=== PATIENT | female | born 1940 | race African-American/Black ===

== ENCOUNTER 2019-02-14 13:05 | Inpatient (IN) | payer OTHER ==
[~2019-02-14] VITALS: Ht 167.6 cm; Wt 64.6 kg
[2019-02-14 14:43] LABS: EOSINOPHILS % 2.3 % (0.0-5.0); HEMATOCRIT. 35.1 % (36.0-48.0); HEMOGLOBIN. 11.7 g/dL (12.0-16.0); LYMPHOCYTES % 29.6 % (20.0-50.0); MEAN CORPUSCULAR HEMOGLOBIN 28.6 pg (28.0-32.0); MEAN CORPUSCULAR VOLUME 85.9 fL (81.0-99.0); MEAN PLATELET VOLUME 9.4 fl (7.4-10.4); MONOCYTES % 6.6 % (2.0-8.0); NEUTROPHILS % 60.5 % (40.0-76.0); PLATELET 168 x1000/uL (130-400); RED BLOOD CELL COUNT 4.09 mill/uL (4.2-5.4); RED CELL DISTRIBUTION WIDTH 20.5 % (11.6-14.6)
[2019-02-14 14:50] LABS: CHLORIDE 106 mEq/L (98-107)
[2019-02-14] MEDS ORDERED: ASPIRIN 325MG EC TABLET PO ONE (15:30)
[2019-02-14] MEDS ORDERED: ASPIRIN 81MG TABLET ONE (16:40)
[2019-02-14] MEDS: CLOPIDOGREL 75MG TABLET PO SCH (17:00)
[2019-02-14] MEDS ORDERED: ASPIRIN 325MG EC TABLET PO SCH (17:00)
[2019-02-14] MEDS ORDERED: ENOXAPARIN 60MG/0.6ML SYR SUBCUT ONE (17:15)
[2019-02-14] MEDS ORDERED: NA PHOS,M-B/NA PHOS,DI-BA ENEMA 118ML PR PRN (17:30)
[2019-02-14] MEDS ORDERED: DIPHENHYDRAMINE 50MG/ML VIAL IV PRN (17:30)
[2019-02-14] MEDS ORDERED: ACETAMINOPHEN 650MG SUPP PR PRN (17:30)
[2019-02-14] MEDS ORDERED: ACETAMINOPHEN 325MG TABLET PO PRN (17:30)
[2019-02-14] MEDS ORDERED: LORAZEPAM 0.5MG TABLET PO PRN (17:30)
[2019-02-14] MEDS ORDERED: IPRATROPIUM/ALBUTEROL 0.5-3(2.5)MG/3ML NEB NEB PRN (17:30)
[2019-02-14] MEDS ORDERED: ONDANSETRON HCL 4MG/2ML INJ IV PRN (17:30)
[2019-02-14] MEDS ORDERED: DOCUSATE SODIUM 100MG CAPSULE PO PRN (17:30)
[2019-02-14] MEDS ORDERED: HYDROCODONE/ACETAMINOPHEN 5/325MG TABLET PO PRN (17:30)
[2019-02-14] MEDS ORDERED: CLONIDINE 0.1MG TABLET PO PRN (17:30)
[2019-02-14] MEDS ORDERED: MAGNESIUM/ALUMINUM HYDROXIDE/SIMETHICONE 30ML UDC PO PRN (17:30)
[2019-02-14] MEDS ORDERED: GUAIFENESIN 200MG/10ML SUGAR FREE UDC PO PRN (17:30)
[2019-02-14] MEDS ORDERED: CARVEDILOL 12.5MG TABLET PO NR (17:48)
[2019-02-14 18:06] LABS: CLARITY URINE CLEAR (CLEAR); COLOR URINE YELLOW (YELLOW); KETONES URINE NEGATIVE (NEGATIVE); LEUKOCYTE ESTERASE URINE TRACE (NEGATIVE); NITRITE URINE NEGATIVE (NEGATIVE); OCCULT BLOOD URINE NEGATIVE (NEGATIVE); PROTEIN URINE NEGATIVE (NEGATIVE); SPECIFIC GRAVITY URINE 1.006 (1.005-1.030); UROBILINOGEN URINE 0.2 E.U./dL (0.2-1.0)
[2019-02-14 18:10] LABS: BG BASE EXCESS 0.1 mmol/L (-2.0-2.0); BG CARBOXYHEMOGLOBIN 0.7 % (0.5-1.5); BG DEOXYHEMOGLOBIN 7.4 % (0.0-5.0); BG FRACTION INSPIRED OXYGEN 21; BG HCO3 ACT 24.7 mmol/L (22.0-26.0); BG METHEMOGLOBIN 0.4 % (0.0-1.5); BG OXYGEN SATURATION 92.5 % (92.0-98.5); BG OXYHEMOGLOBIN 91.5 % (94.0-97.0); BG PCO2 39.9 mmHg (35.0-45.0); BG PH 7.409 (7.350-7.450); BG PO2 67.9 mmHg (75.0-100.0); BG SAMPLE SITE RIGHT RADIAL; BG TOTAL HEMOGLOBIN 12.4 g/dL (12.0-18.0); BG VENT MODE ROOM AIR
[2019-02-14 18:21] LABS: *AMPHETAMINES SCREEN URINE NEGATIVE (NEGATIVE); *BARBITURATES SCREEN URINE NEGATIVE (NEGATIVE); *BENZODIAZEPINES SCREEN URINE NEGATIVE (NEGATIVE); *COCAINE SCREEN URINE NEGATIVE (NEGATIVE); CANNABINOID URINE SCREEN NEGATIVE (NEGATIVE)
[2019-02-14 18:22] LABS: METHADONE URINE SCREEN NEGATIVE (NEGATIVE); OPIATES URINE SCREEN NEGATIVE (NEGATIVE); PHENCYCLIDINE URINE SCREEN NEGATIVE (NEGATIVE)
[2019-02-14 19:16] LABS: EOSINOPHILS % 3.4 % (0.0-5.0); HEMATOCRIT. 32.6 % (36.0-48.0); HEMOGLOBIN. 11.1 g/dL (12.0-16.0); LYMPHOCYTES % 39.7 % (20.0-50.0); MEAN CORPUSCULAR VOLUME 85.1 fL (81.0-99.0); MEAN PLATELET VOLUME 9.1 fl (7.4-10.4); MONOCYTES % 5.5 % (2.0-8.0); NEUTROPHILS % 50.4 % (40.0-76.0); PLATELET 157 x1000/uL (130-400); RED BLOOD CELL COUNT 3.83 mill/uL (4.2-5.4); RED CELL DISTRIBUTION WIDTH 20.7 % (11.6-14.6)
[2019-02-14 19:20] LABS: CHLORIDE 108 mEq/L (98-107)
[2019-02-14 19:27] LABS: LDL CHOLESTEROL 100 mg/dL (5-100)
[2019-02-14 19:28] LABS: HDL CHOLESTEROL 91 mg/dL (40-59)
[2019-02-14 19:29] LABS: T4 FREE 1.11 ng/dL (0.76-1.46)
[2019-02-14 19:32] LABS: D-DIMER 0.44 mg/L FEU (<0.50); INR 1.1; PROTHROMBIN TIME 11.4 sec (9.6-11.0)
[2019-02-14 22:00] VITALS: BP 150/60
[2019-02-14] MEDS: AMLODIPINE 5MG TABLET PO SCH (23:00)
[2019-02-14] MEDS: CARVEDILOL 12.5MG TABLET PO SCH (23:00)
[2019-02-14] MEDS: ATORVASTATIN CALCIUM 20MG TABLET PO SCH (23:00)
[2019-02-14] MEDS: NITROGLYCERIN OINT 1GM/INCH UDPKT TD SCH (23:10)
[2019-02-15] VITALS: BP 133/71
[2019-02-15 00:40] LABS: CREATINE KINASE MB FRACTION 1.9 ng/mL (0.5-3.6)
[2019-02-15] MEDS ORDERED: LOSA25TA26 PO (03:22)
[2019-02-15] MEDS ORDERED: AMLO5TAB88 PO ×2 (03:22)
[2019-02-15] MEDS ORDERED: ATOR20TA65 PO (03:22)
[2019-02-15] MEDS ORDERED: CARV25TA47 PO (03:22)
[2019-02-15] MEDS ORDERED: TEMA30CA PO (03:22)
[2019-02-15] MEDS ORDERED: ASPI-1393 PO (03:22)
[2019-02-15] MEDS ORDERED: CLOP75TA33 PO (03:22)
[2019-02-15] MEDS ORDERED: FAMO20TA8 PO (03:22)
[2019-02-15] MEDS ORDERED: GABA-290 PO (03:22)
[2019-02-15] MEDS ORDERED: CALC-1042 PO (03:22)
[2019-02-15] MEDS ORDERED: POTA8TAB8 PO (03:22)
[2019-02-15] MEDS ORDERED: HYDR200T35 PO (03:22)
[2019-02-15] MEDS ORDERED: EZET10TA13 PO (03:22)
[2019-02-15] MEDS ORDERED: PANT40TA4 PO (03:22)
[2019-02-15] MEDS ORDERED: ACYC200C PO (03:22)
[2019-02-15] MEDS ORDERED: FURO20TA4 PO (03:22)
[2019-02-15] MEDS ORDERED: NITR0.4T49 SL (03:22)
[2019-02-15 04:00] VITALS: BP 128/55
[2019-02-15] MEDS: NITROGLYCERIN OINT 1GM/INCH UDPKT TD SCH ×4 (05:06→23:53)
[2019-02-15 06:44] LABS: CHLORIDE 109 mEq/L (98-107)
[2019-02-15 06:47] LABS: BASOPHILS % 1.5 % (0.0-2.0); EOSINOPHILS % 4.7 % (0.0-5.0); HEMATOCRIT. 33.2 % (36.0-48.0); HEMOGLOBIN. 11.3 g/dL (12.0-16.0); LYMPHOCYTES % 47.5 % (20.0-50.0); MEAN CORPUSCULAR HEMOGLOBIN 29.1 pg (28.0-32.0); MEAN CORPUSCULAR VOLUME 85.7 fL (81.0-99.0); MEAN PLATELET VOLUME 9.4 fl (7.4-10.4); NEUTROPHILS % 38.3 % (40.0-76.0); PLATELET 151 x1000/uL (130-400); RED BLOOD CELL COUNT 3.88 mill/uL (4.2-5.4); RED CELL DISTRIBUTION WIDTH 20.5 % (11.6-14.6)
[2019-02-15 06:59] LABS: LDL CHOLESTEROL 94 mg/dL (5-100)
[2019-02-15 07:00] LABS: CREATINE KINASE 77 IU/L (26-192)
[2019-02-15 07:01] LABS: CREATINE KINASE MB FRACTION 1.5 ng/mL (0.5-3.6); T4 FREE 1.09 ng/dL (0.76-1.46)
[2019-02-15 07:03] LABS: HDL CHOLESTEROL 78 mg/dL (40-59)
[2019-02-15 08:00] VITALS: BP 159/68
[2019-02-15] MEDS ORDERED: ENOXAPARIN 40MG/0.4ML SYR SUBCUT SCH (09:00)
[2019-02-15] MEDS ORDERED: ASPIRIN 81MG EC TABLET PO SCH (09:00)
[2019-02-15] MEDS: CARVEDILOL 12.5MG TABLET PO SCH ×2 (09:42→21:07)
[2019-02-15] MEDS: AMLODIPINE 5MG TABLET PO SCH ×2 (09:42→21:07)
[2019-02-15] MEDS: CLOPIDOGREL 75MG TABLET PO SCH (09:42)
[2019-02-15] MEDS: ASPIRIN 81MG EC TABLET PO SCH ×2 (09:43→17:58)
[2019-02-15] MEDS: LOSARTAN POTASSIUM 25 MG TABLET PO SCH (09:43)
[2019-02-15 12:00] VITALS: BP 146/79
[2019-02-15 16:00] VITALS: BP 101/74
[2019-02-15 20:00] VITALS: BP 122/60
[2019-02-15] MEDS: ATORVASTATIN CALCIUM 20MG TABLET PO SCH (21:07)
[2019-02-15] MEDS ORDERED: THROAT LOZENGES-BENZOCAINE/MENTH/CETYLPYRD CL LOZENGES MM PRN (22:30)
[2019-02-16] VITALS (16 sets, daily range): BP systolic 101–160; BP diastolic 52–88
[2019-02-16] MEDS: NITROGLYCERIN OINT 1GM/INCH UDPKT TD SCH ×2 (05:15→19:51)
[2019-02-16] MEDS ORDERED: SODIUM CHLORIDE 0.45% 1,000 ML IV ONE (06:00)
[2019-02-16] MEDS: LOSARTAN POTASSIUM 25 MG TABLET PO SCH (08:50)
[2019-02-16] MEDS: CLOPIDOGREL 75MG TABLET PO SCH (08:50)
[2019-02-16] MEDS: AMLODIPINE 5MG TABLET PO SCH ×2 (08:51→20:56)
[2019-02-16] MEDS: ASPIRIN 81MG EC TABLET PO SCH (08:51)
[2019-02-16] MEDS: CARVEDILOL 12.5MG TABLET PO SCH ×2 (08:51→20:56)
[2019-02-16] MEDS ORDERED: ENOXAPARIN 30MG/0.3ML SYR SUBCUT SCH (09:00)
[2019-02-16 09:58] LABS: BASOPHILS % 1.1 % (0.0-2.0); EOSINOPHILS % 3.7 % (0.0-5.0); HEMATOCRIT. 33.9 % (36.0-48.0); HEMOGLOBIN. 11.5 g/dL (12.0-16.0); LYMPHOCYTES % 33.9 % (20.0-50.0); MEAN CORPUSCULAR HEMOGLOBIN 29.2 pg (28.0-32.0); MEAN PLATELET VOLUME 9.8 fl (7.4-10.4); MONOCYTES % 7.5 % (2.0-8.0); NEUTROPHILS % 53.8 % (40.0-76.0); PLATELET 157 x1000/uL (130-400); RED BLOOD CELL COUNT 3.94 mill/uL (4.2-5.4); RED CELL DISTRIBUTION WIDTH 20.4 % (11.6-14.6)
[2019-02-16] MEDS ORDERED: NICARDIPINE 100MCG/ML 10ML VIAL (CATH LAB) IV ONE (10:00)
[2019-02-16] MEDS ORDERED: NITROGLYCERIN 50MCG/ML 10ML VIAL (CATH LAB) IV ONE (10:00)
[2019-02-16] MEDS ORDERED: MIDAZOLAM HCL 2 MG/2 ML VIAL ONE (13:51)
[2019-02-16] MEDS ORDERED: FENTANYL CITRATE/PF 50MCG/ML 2ML VIAL ONE (13:51)
[2019-02-16] MEDS ORDERED: IOHEXOL-300 100 ML BOTTLE ONE ×2 (13:52→14:33)
[2019-02-16] MEDS ORDERED: IODIXANOL 320MG/ML 100 ML BOTTLE IV ONE (13:52)
[2019-02-16] MEDS ORDERED: LIDOCAINE HCL 1% 20ML VIAL (Pyxis) INJ ONE (13:52)
[2019-02-16] MEDS ORDERED: ASPIRIN/SOD BICARB/CITRIC ACID 324MG TAB EFF ONE (13:55)
[2019-02-16] MEDS ORDERED: CLOPIDOGREL 75MG TABLET ONE (15:00)
[2019-02-16] MEDS ORDERED: ONDANSETRON HCL 4MG/2ML INJ IV PRN (15:15)
[2019-02-16] MEDS ORDERED: ACETAMINOPHEN 325MG TABLET PO PRN (15:15)
[2019-02-16] MEDS ORDERED: SODIUM CHLORIDE 0.45% 700 ML IV ONE (15:15)
[2019-02-16] MEDS ORDERED: ATROPINE SULFATE 1MG/10ML SYR IV PRN (15:15)
[2019-02-16] MEDS ORDERED: CLOPIDOGREL 75MG TABLET PO ONE (15:15)
[2019-02-16] MEDS ORDERED: MORPHINE SULFATE 2 MG/ML CPJ (NOT FOR IM USE) IV PRN (15:15)
[2019-02-16] MEDS: ATORVASTATIN CALCIUM 20MG TABLET PO SCH (21:08)
[2019-02-17] VITALS (7 sets, daily range): BP systolic 107–146; BP diastolic 45–76
[2019-02-17] MEDS: NITROGLYCERIN OINT 1GM/INCH UDPKT TD SCH ×3 (06:09→12:41)
[2019-02-17 07:17] LABS: BASOPHILS % 1.1 % (0.0-2.0); EOSINOPHILS % 5.4 % (0.0-5.0); HEMATOCRIT. 34.4 % (36.0-48.0); HEMOGLOBIN. 11.5 g/dL (12.0-16.0); MEAN CORPUSCULAR VOLUME 86.6 fL (81.0-99.0); MEAN PLATELET VOLUME 9.4 fl (7.4-10.4); MONOCYTES % 9.6 % (2.0-8.0); NEUTROPHILS % 45.9 % (40.0-76.0); PLATELET 150 x1000/uL (130-400); RED BLOOD CELL COUNT 3.97 mill/uL (4.2-5.4); RED CELL DISTRIBUTION WIDTH 20.4 % (11.6-14.6)
[2019-02-17] MEDS: LOSARTAN POTASSIUM 25 MG TABLET PO SCH (08:46)
[2019-02-17] MEDS: CARVEDILOL 12.5MG TABLET PO SCH (08:46)
[2019-02-17] MEDS: AMLODIPINE 5MG TABLET PO SCH (08:46)
[2019-02-17] MEDS ORDERED: ASPIRIN 81MG TABLET PO SCH (09:00)
[2019-02-17] MEDS ORDERED: CLOPIDOGREL 75MG TABLET PO SCH (09:00)
[2019-02-20 17:06] LABS: ANTI-DNA DOUBLE STRANDED QUANT 15 IU/mL (0-9); ANTI-NUCLEAR ANTIBODIES DIRECT Positive (Negative)
== END 2019-02-17 14:02 | disposition home or self-care (01) | DRG 246 ==
LOC: ER 13:05 → SUPCPDRO 17:00 → 6WST 18:21 → ENRESERV 20:41 → 6WST 23:00 → 3WST 02-16 18:56
PROVIDERS: ADMIT Internal Medicine; ATTEND Internal Medicine
PROC: 4A023N7 Measurement of Cardiac Sampling and Pressure, Left Heart, Percutaneous Approach (ICD-10-PCS; principal; 2019-02-16)
PROC: 027034Z Dilation of Coronary Artery, One Artery with Drug-eluting Intraluminal Device, Percutaneous Approach (ICD-10-PCS; 2019-02-16)
PROC: B2111ZZ Fluoroscopy of Multiple Coronary Arteries using Low Osmolar Contrast (ICD-10-PCS; 2019-02-16)
DX: I21.4 Non-ST elevation (NSTEMI) myocardial infarction (principal); I50.43 Acute on chronic combined systolic (congestive) and diastolic (congestive) heart failure; N17.9 Acute kidney failure, unspecified; I13.0 Hypertensive heart and chronic kidney disease with heart failure and stage 1 through stage 4 chronic kidney disease, or unspecified chronic kidney disease; D64.9 Anemia, unspecified; E78.5 Hyperlipidemia, unspecified; I08.0 Rheumatic disorders of both mitral and aortic valves; N18.9 Chronic kidney disease, unspecified; I25.10 Atherosclerotic heart disease of native coronary artery without angina pectoris; I25.5 Ischemic cardiomyopathy; M34.1 CR(E)ST syndrome; Z90.710 Acquired absence of both cervix and uterus; Z90.89 Acquired absence of other organs; Z95.5 Presence of coronary angioplasty implant and graft
CPT/HCPCS: 36415; 36600; 71045; 76770; 80048; 80061; 80305; 81003; 82375; 82550; 82553; 82805; 83880; 84439; 84443; 84484; 85347; 85379; 85651; 86038; 86225; 92928; 93005; 93306; 93454; 93923; 97162; 99285; C1769; C1874; C1887; C1893; J1644; J1650; J2250; J3010; J3490; Q9967